=== PATIENT | male | born 1970 | race Two or more races ===

== ENCOUNTER 2021-07-21 19:50 | Inpatient (IN) | payer BC ==
[~2021-07-21] VITALS: Ht 177.8 cm; Wt 102.0 kg
--- NOTE | 2021-07-21 20:04 | NUR ---
aquiles from [place], pt experiencing covid sx and tested positive today. per EMS, pt also dx with bilat PNA. pt denies current CP/SOB. pt a&o, resps even and unlabored, vss, nadn. CHARLEEN Cruz at bedside for eval.
[2021-07-21] MEDS ORDERED: DEXAMETHASONE 4 MG/ML, 1ML IVPush ONE (20:30)
[2021-07-21 20:38] LABS: BASOPHILS % (AUTO) 0 % (0-1); EOSINOPHILS % (AUTO) 0 % (1-7); LYMPHOCYTES % (AUTO) 20 % (22-44); MEAN CORPUSCULAR HEMOGLOBIN 30.6 pg (27.5-34.5); MEAN CORPUSCULAR HGB CONC 33.9 g/dL (33.2-36.2); MEAN PLATELET VOLUME 8.4 fL (7.4-10.4); MONOCYTES % (AUTO) 10 % (2-9); NEUTROPHILS % (AUTO) 70 % (42-75); PLATELET COUNT 164 x10^3/uL (130-400); RED BLOOD COUNT 5.02 x10^6/uL (4.38-5.82); RED CELL DISTRIBUTION WIDTH 13.6 % (9.4-14.8)
[2021-07-21 20:50] LABS: ALANINE AMINOTRANSFERASE 45 U/L (12-78); ALBUMIN 2.8 g/dL (3.4-5.0); ANION GAP 13 mmol/L (5-15); CALCIUM 8.1 mg/dL (8.5-10.1); CHLORIDE 99 mmol/L (98-107); CREATININE 2.15 mg/dL (0.7-1.3); D-DIMER (DIC) 0.73 ug/mlFEU (0.00-0.52); PROTIME 10.7 Seconds (9.6-11.5)
[2021-07-21 20:57] LABS: ALKALINE PHOSPHATASE 76 U/L (45-117); BILIRUBIN,TOTAL 0.5 mg/dL (0.2-1.0); TOTAL PROTEIN 6.7 g/dL (6.4-8.2)
[2021-07-21] MEDS ORDERED: DEXAMETHASONE 4 MG/ML, 1ML ONE (21:00)
[2021-07-21] MEDS ORDERED: OXYcodone IR 5MG TABLET PO PRN (21:30)
[2021-07-21] MEDS: INSULIN LISPRO 100 UNITS/ML, PEN SQ-INSULIN SCH (21:30)
[2021-07-21] MEDS ORDERED: ONDANSETRON 2MG/ML, 2ML IVPush PRN (21:30)
[2021-07-21] MEDS ORDERED: LABETALOL 5MG/ML, 20ML IVPush PRN (21:30)
[2021-07-21] MEDS ORDERED: POLYETHYLENE GLYCOL 17 GM PACKET PO PRN (21:30)
[2021-07-21] MEDS ORDERED: GLUCAGON 1 MG IM PRN (21:30)
[2021-07-21] MEDS ORDERED: MELATONIN 5 MG TABLET PO PRN (21:30)
[2021-07-21] MEDS ORDERED: DEXTROSE 4 GM TAB.CHEW PO PRN (21:30)
[2021-07-21] MEDS ORDERED: DEXTROSE 50%, 50ML SYRINGE IVPush PRN (21:30)
[2021-07-21] MEDS ORDERED: PHARMACY MAY ADJ FOR RENAL FX MC PRN (21:30)
--- NOTE | 2021-07-21 23:09 | NUR ---
report called to Jolly PULLIAM in [phone]
[2021-07-21] MEDS: ASCORBIC ACID 500 MG TABLET PO SCH (23:53)
[2021-07-21] MEDS: FAMOTIDINE 20 MG TABLET PO SCH (23:53)
[2021-07-21] MEDS: BENZONATATE 100 MG CAPSULE PO SCH (23:53)
[2021-07-21] MEDS: ACETAMINOPHEN 500 MG TABLET PO SCH (23:53)
[2021-07-21] MEDS: SODIUM CHLORIDE FLUSH 10ML SYR IVF SCH (23:53)
[2021-07-22 00:01] VITALS: BP_SYST 157; BP_SYST 159; BP_DIAS 102; BP_DIAS 87
[2021-07-22 00:10] VITALS: BP 142/77
[2021-07-22] MEDS ORDERED: VALS320T15 PO (00:17)
[2021-07-22] MEDS: ACETAMINOPHEN 500 MG TABLET PO SCH ×4 (04:00→15:36)
[2021-07-22 06:35] LABS: BASOPHILS % (AUTO) 0 % (0-1); EOSINOPHILS % (AUTO) 0 % (1-7); LYMPHOCYTES % (AUTO) 25 % (22-44); MEAN CORPUSCULAR HEMOGLOBIN 30.4 pg (27.5-34.5); MEAN PLATELET VOLUME 8.2 fL (7.4-10.4); MONOCYTES % (AUTO) 8 % (2-9); NEUTROPHILS % (AUTO) 67 % (42-75); PLATELET COUNT 168 x10^3/uL (130-400); RED BLOOD COUNT 5.18 x10^6/uL (4.38-5.82); RED CELL DISTRIBUTION WIDTH 13.7 % (9.4-14.8)
[2021-07-22] MEDS: INSULIN LISPRO 100 UNITS/ML, PEN SQ-INSULIN SCH ×3 (07:00→15:36)
[2021-07-22 07:43] LABS: ANION GAP 8 mmol/L (5-15); CALCIUM 8.6 mg/dL (8.5-10.1); CHLORIDE 104 mmol/L (98-107)
[2021-07-22 07:44] LABS: CREATININE 2.01 mg/dL (0.7-1.3)
[2021-07-22 08:00] VITALS: BP 145/82
[2021-07-22] MEDS: BENZONATATE 100 MG CAPSULE PO SCH ×2 (08:04→15:36)
[2021-07-22] MEDS: ASCORBIC ACID 500 MG TABLET PO SCH (08:04)
[2021-07-22] MEDS: FAMOTIDINE 20 MG TABLET PO SCH (08:04)
[2021-07-22] MEDS: SODIUM CHLORIDE FLUSH 10ML SYR IVF SCH (08:05)
[2021-07-22] MEDS ORDERED: ZINC SULFATE 220 MG CAPSULE PO SCH (09:00)
[2021-07-22] MEDS ORDERED: DEXAMETHASONE 4 MG/ML, 1ML IVPush SCH (09:00)
[2021-07-22 11:11] VITALS: BP 148/80
[2021-07-22 15:38] VITALS: BP 137/81
[2021-07-22] MEDS ORDERED: DEXA6TAB6 PO (16:48)
[2021-07-23] MEDS ORDERED: FAMOTIDINE 20 MG TABLET PO SCH (09:00)
== END 2021-07-22 18:05 | disposition home or self-care (01) | DRG 177 ==
LOC: ED 21:00 → EDIP 22:16 → 3N 23:11
PROVIDERS: ADMIT Internal Medicine; ATTEND Family Medicine
DX: U07.1 COVID-19 (principal); J12.82 Pneumonia due to coronavirus disease 2019; J96.01 Acute respiratory failure with hypoxia; D65 Disseminated intravascular coagulation [defibrination syndrome]; N17.9 Acute kidney failure, unspecified; E87.1 Hypo-osmolality and hyponatremia; E66.01 Morbid (severe) obesity due to excess calories; I10 Essential (primary) hypertension; E10.65 Type 1 diabetes mellitus with hyperglycemia; Z68.31 Body mass index [BMI] 31.0-31.9, adult
CPT/HCPCS: 36415; 71045; 80048; 80053; 82728; 82962; 83605; 83615; 84145; 85025; 85049; 85379; 85384; 85610; 85730; 86140; 87040; 93005; 96374; 96375; G0378; J1100; J2405

== ENCOUNTER 2021-07-24 12:00 | Inpatient (IN) | payer BC, OTHER ==
[~2021-07-24] VITALS: Ht 177.8 cm; Wt 97.6 kg
[~2021-07-24 12:00] MED LIST: DEXA6TAB6 PO; VALS320T15 PO
--- NOTE | 2021-07-24 12:07 | NUR ---
EKG DONE IN TRIAGE.
[2021-07-24] MEDS ORDERED: SODIUM CHLORIDE FLUSH 10ML SYR IVF ONE (12:30)
--- NOTE | 2021-07-24 12:30 | NUR ---
PT C/O INCREASING SOB AND WEAKNESS. PT COVID + A FEW DAYS AGO AND WAS ADMITTED TO [facility] AT [place] AND RELEASED WEDNESDAY. PT ALSO HAS NAUSEA, NO VOMITING AND CP (3/10) ACROSS THE ENTIRE CHEST AT THIS TIME.
--- NOTE | 2021-07-24 12:30 | NUR ---
DR NGUYEN BEDSIDE
[2021-07-24] MEDS ORDERED: SODIUM CHLORIDE 0.9% 1,000ML IVBOLUS ONE (13:00)
--- NOTE | 2021-07-24 13:05 | NUR ---
REPORT FROM HERACLIO DOS SANTOS FOR TRANSFER OF PATIENT CARE.
[2021-07-24 13:16] LABS: BASOPHILS % (AUTO) 0 % (0-1); EOSINOPHILS % (AUTO) 0 % (1-7); LYMPHOCYTES % (AUTO) 6 % (22-44); MEAN CORPUSCULAR HEMOGLOBIN 30.3 pg (27.5-34.5); MEAN CORPUSCULAR HGB CONC 33.8 g/dL (33.2-36.2); MEAN PLATELET VOLUME 8.3 fL (7.4-10.4); MONOCYTES % (AUTO) 7 % (2-9); NEUTROPHILS % (AUTO) 87 % (42-75); PLATELET COUNT 243 x10^3/uL (130-400); RED BLOOD COUNT 5.13 x10^6/uL (4.38-5.82); RED CELL DISTRIBUTION WIDTH 13.7 % (9.4-14.8)
[2021-07-24 13:23] LABS: ALBUMIN 2.7 g/dL (3.4-5.0); ANION GAP 8 mmol/L (5-15); CALCIUM 8.8 mg/dL (8.5-10.1); CHLORIDE 101 mmol/L (98-107)
[2021-07-24 13:24] LABS: CREATININE 2.15 mg/dL (0.7-1.3)
--- NOTE | 2021-07-24 13:52 | NUR ---
PATIENT RESTING IN [facility], NS BOLUS HUNG. PATIENT'S O2 ON RA 87%-88%. PLACED ON 3 LPM NC, O2 UP TO 93%-96%, OTHER VSS, CALL LIGHT WITHIN REACH, NO FURTHER NEEDS AT THIS TIME.
[2021-07-24] MEDS ORDERED: SODIUM CHLORIDE FLUSH 10ML SYR IVF PRN (14:30)
[2021-07-24] MEDS ORDERED: DEXAMETHASONE 4 MG/ML, 1ML ONE (14:43)
[2021-07-24] MEDS ORDERED: AZITHROMYCIN 250 MG TABLET ONE (14:44)
--- NOTE | 2021-07-24 14:46 | NUR ---
DR. SAUL AT BEDSIDE FOR ADMISSION EVALUATION.
[2021-07-24] MEDS: CEFTRIAXONE 2 GM in DEXTROSE 5% 50 ML IVPB SCH (14:54)
[2021-07-24] MEDS: DEXAMETHASONE 4 MG/ML, 1ML IVPush SCH (14:58)
--- NOTE | 2021-07-24 14:58 | NUR ---
SPOKE WITH DR. SAUL, PATRICERON TO BE STARTED NOW, ORDER IS FOR 0900 TOMORROW.
[2021-07-24] MEDS: AZITHROMYCIN 500 MG TABLET PO SCH (15:02)
[2021-07-24 15:04] LABS: ALBUMIN 2.7 g/dL (3.4-5.0); BILIRUBIN, DIRECT 0.2 mg/dL (0.1-0.2)
[2021-07-24 15:11] LABS: BILIRUBIN,INDIRECT 0.3 mg/dL (0.0-2.0); BILIRUBIN,TOTAL 0.5 mg/dL (0.2-1.0); C-REACTIVE PROTEIN, QUANT 3.2 mg/dL (0.02-0.49); TOTAL PROTEIN 6.6 g/dL (6.4-8.2)
--- NOTE | 2021-07-24 15:22 | NUR ---
ATTEMPTED TO CALL REPORT.
[2021-07-24] MEDS ORDERED: TRAZODONE 50MG TABLET PO PRN (15:30)
[2021-07-24] MEDS ORDERED: ACETAMINOPHEN 325 MG TABLET PO PRN (15:30)
--- NOTE | 2021-07-24 15:30 | NUR ---
REPORT TO HERACLIO SCHROEDER FOR TRANSFER OF PATIENT CARE.
[2021-07-24 15:45] LABS: ACETONE, SERUM Small (20mg/dL) (Negative)
[2021-07-24] MEDS ORDERED: REMDESIVIR 100 MG in SODIUM CHLORIDE 0.9% 250 ML IVPB ONE (16:00)
[2021-07-24] MEDS: INSULIN LISPRO 100 UNITS/ML, PEN SQ-INSULIN SCH ×3 (16:00→21:00)
--- NOTE | 2021-07-24 16:02 | NUR ---
PATIENT TRANSFERRED IN STABLE CONDITION VIA GURNEY WITH PHOTOGRAPHIC PRINTER. ALL PATIENT BELONGINGS TAKEN TO FLOOR WIHT PATIENT.
[2021-07-24] MEDS: ONDANSETRON 2MG/ML, 2ML IVPush PRN (18:12)
[2021-07-24] MEDS: GUAIFENESIN/COD200MG-20MG/10ML LIQUID PO PRN (18:12)
[2021-07-24] MEDS: ASCORBIC ACID 500 MG TABLET PO SCH (18:12)
[2021-07-24] MEDS: ENOXAPARIN 40 MG/0.4 ML SQ SCH (18:13)
[2021-07-24 18:35] VITALS: BP 145/84
[2021-07-24 18:37] VITALS: BP 145/84
[2021-07-24 19:42] VITALS: BP 144/87
[2021-07-24] MEDS: INSULIN GLARGINE 100 UNITS/ML, PEN SQ-INSULIN SCH (22:02)
[2021-07-25 00:53] VITALS: BP 144/88
[2021-07-25] MEDS: GUAIFENESIN/COD200MG-20MG/10ML LIQUID PO PRN ×4 (01:26→19:57)
[2021-07-25 03:44] LABS: MICROSCOPIC INDICATED
[2021-07-25 05:29] LABS: BASOPHILS % (AUTO) 0 % (0-1); EOSINOPHILS % (AUTO) 0 % (1-7); LYMPHOCYTES % (AUTO) 9 % (22-44); MEAN CORPUSCULAR HEMOGLOBIN 30.5 pg (27.5-34.5); MEAN CORPUSCULAR HGB CONC 34.2 g/dL (33.2-36.2); MEAN PLATELET VOLUME 8.5 fL (7.4-10.4); MONOCYTES % (AUTO) 9 % (2-9); NEUTROPHILS % (AUTO) 82 % (42-75); PLATELET COUNT 261 x10^3/uL (130-400); RED BLOOD COUNT 4.88 x10^6/uL (4.38-5.82); RED CELL DISTRIBUTION WIDTH 13.7 % (9.4-14.8)
[2021-07-25 05:33] LABS: ANION GAP 8 mmol/L (5-15); CALCIUM 9.1 mg/dL (8.5-10.1); CHLORIDE 106 mmol/L (98-107)
[2021-07-25 05:38] LABS: CREATININE 1.88 mg/dL (0.7-1.3)
[2021-07-25] MEDS: INSULIN LISPRO 100 UNITS/ML, PEN SQ-INSULIN SCH ×7 (07:00→20:11)
[2021-07-25] MEDS ORDERED: FUROSEMIDE 40 MG/4 ML IV SCH ×2 (09:00→21:00)
[2021-07-25] MEDS: CHOLECALCIFEROL 1,000 UNIT TABLET PO SCH (09:00)
[2021-07-25] MEDS ORDERED: VALSARTAN 80 MG TABLET PO SCH ×2 (09:00)
[2021-07-25] MEDS: INSULIN GLARGINE 100 UNITS/ML, PEN SQ-INSULIN SCH (11:23)
[2021-07-25] MEDS: THIAMINE 100MG TABLET PO SCH (11:31)
[2021-07-25] MEDS: ZINC SULFATE 220 MG CAPSULE PO SCH (11:31)
[2021-07-25] MEDS: ASCORBIC ACID 500 MG TABLET PO SCH ×2 (11:32→17:34)
[2021-07-25 11:48] VITALS: BP 124/76
[2021-07-25] MEDS: ONDANSETRON 2MG/ML, 2ML IVPush PRN ×2 (12:05→17:36)
[2021-07-25 14:00] VITALS: BP 120/75
[2021-07-25] MEDS: CEFTRIAXONE 2 GM in DEXTROSE 5% 50 ML IVPB SCH (15:33)
[2021-07-25] MEDS ORDERED: REMDESIVIR 50 MG in SODIUM CHLORIDE 0.9% 250 ML IVPB SCH (16:00)
[2021-07-25] MEDS: REMDESIVIR 100 MG in SODIUM CHLORIDE 0.9% 250 ML IVPB SCH (17:34)
[2021-07-25] MEDS: ENOXAPARIN 40 MG/0.4 ML SQ SCH (17:35)
[2021-07-25 19:46] VITALS: BP 120/79
[2021-07-25] MEDS ORDERED: INSULIN GLARGINE 100 UNITS/ML, PEN SQ-INSULIN SCH (21:00)
[2021-07-26 00:49] VITALS: BP 103/71
[2021-07-26] MEDS: GUAIFENESIN/COD200MG-20MG/10ML LIQUID PO PRN ×2 (02:15→21:40)
[2021-07-26 05:43] LABS: ALANINE AMINOTRANSFERASE 44 U/L (12-78); ALBUMIN 2.3 g/dL (3.4-5.0); ANION GAP 10 mmol/L (5-15); CHLORIDE 104 mmol/L (98-107); CREATININE 2.25 mg/dL (0.7-1.3)
[2021-07-26 05:46] LABS: ALKALINE PHOSPHATASE 65 U/L (45-117); BILIRUBIN,TOTAL 0.5 mg/dL (0.2-1.0); TOTAL PROTEIN 6.8 g/dL (6.4-8.2)
[2021-07-26 06:35] VITALS: BP 108/76
[2021-07-26] MEDS: INSULIN LISPRO 100 UNITS/ML, PEN SQ-INSULIN SCH ×7 (08:32→21:40)
[2021-07-26] MEDS: FUROSEMIDE 40 MG/4 ML IV SCH (08:39)
[2021-07-26] MEDS: DEXAMETHASONE 4 MG/ML, 1ML IVPush SCH (08:39)
[2021-07-26] MEDS ORDERED: VALSARTAN 80 MG TABLET PO SCH (09:00)
[2021-07-26] MEDS: INSULIN GLARGINE 100 UNITS/ML, PEN SQ-INSULIN SCH ×2 (11:26→21:39)
[2021-07-26] MEDS: ONDANSETRON 2MG/ML, 2ML IVPush SCH ×2 (11:28→16:44)
[2021-07-26] MEDS: MORPHINE SULFATE 4 MG/ML, 1ML IVPush PRN ×2 (11:31→21:40)
[2021-07-26] MEDS: POTASSIUM CHLORIDE 20 MEQ TAB.ER.PRT PO SCH (11:37)
[2021-07-26] MEDS: THIAMINE 100MG TABLET PO SCH (11:38)
[2021-07-26] MEDS: ZINC SULFATE 220 MG CAPSULE PO SCH (11:38)
[2021-07-26] MEDS: CHOLECALCIFEROL 1,000 UNIT TABLET PO SCH (11:38)
[2021-07-26] MEDS: AZITHROMYCIN 500 MG TABLET PO SCH (11:38)
[2021-07-26] MEDS: ASCORBATE SODIUM IVPB SCH ×2 (11:42→21:40)
[2021-07-26] MEDS: SODIUM CHLORIDE 0.9% IVPB SCH ×2 (11:42→21:40)
[2021-07-26 13:13] VITALS: BP 107/63
[2021-07-26] MEDS: CEFTRIAXONE 2 GM in DEXTROSE 5% 50 ML IVPB SCH (16:37)
[2021-07-26] MEDS: REMDESIVIR 100 MG in SODIUM CHLORIDE 0.9% 250 ML IVPB SCH (17:48)
[2021-07-26] MEDS: ENOXAPARIN 60 MG/0.6 ML SQ SCH (17:48)
[2021-07-26 21:30] VITALS: BP 94/63
[2021-07-27 03:08] VITALS: BP 109/72
[2021-07-27] MEDS: GUAIFENESIN/COD200MG-20MG/10ML LIQUID PO PRN (05:35)
[2021-07-27] MEDS: MORPHINE SULFATE 4 MG/ML, 1ML IVPush PRN ×2 (05:36→18:28)
[2021-07-27 06:26] LABS: MEAN CORPUSCULAR HEMOGLOBIN 30.2 pg (27.5-34.5); MEAN CORPUSCULAR HGB CONC 33.2 g/dL (33.2-36.2); MEAN PLATELET VOLUME 8.5 fL (7.4-10.4); PLATELET COUNT 381 x10^3/uL (130-400); RED CELL DISTRIBUTION WIDTH 13.9 % (9.4-14.8)
[2021-07-27 06:32] LABS: CALCIUM 9.1 mg/dL (8.5-10.1); CHLORIDE 107 mmol/L (98-107)
[2021-07-27 06:38] LABS: ALANINE AMINOTRANSFERASE 35 U/L (12-78); ALBUMIN 2.3 g/dL (3.4-5.0); ALKALINE PHOSPHATASE 65 U/L (45-117); ANION GAP 8 mmol/L (5-15); BILIRUBIN,TOTAL 0.5 mg/dL (0.2-1.0); CREATININE 2.34 mg/dL (0.7-1.3); TOTAL PROTEIN 6.7 g/dL (6.4-8.2)
[2021-07-27 06:55] LABS: BAND#(MANUAL) 0.15 x10^3/uL; BANDS%(MANUAL) 1 % (0-7); LYMPH#(MANUAL) 1.19 x10^3/uL (1-3.4); LYMPHS% (MANUAL) 8 % (22-44); MONOS#(MANUAL) 1.04 x10^3/uL (0.3-2.7); MONOS% (MANUAL) 7 % (2-9); REACTIVE LYMPHS # (MANUAL) 0.45 x10^3/uL (0-0); REACTIVE LYMPHS % (MANUAL) 3 % (0-0); SEG#(MANUAL) 12.07 x10^3/uL (1.8-6.8); SEGS% (MANUAL) 81 % (42-75)
[2021-07-27 06:56] LABS: <PLATELET ESTIMATE> INCREASED; <PLT MORPHOLOGY> NORMAL PLT MORPH; <RBC MORPHOLOGY> NORMAL
[2021-07-27] MEDS: INSULIN LISPRO 100 UNITS/ML, PEN SQ-INSULIN SCH ×5 (07:00→20:36)
[2021-07-27] MEDS: FUROSEMIDE 40 MG/4 ML IV SCH (08:45)
[2021-07-27] MEDS: ONDANSETRON 2MG/ML, 2ML IVPush SCH ×3 (08:46→16:17)
[2021-07-27] MEDS: CHOLECALCIFEROL 1,000 UNIT TABLET PO SCH (08:46)
[2021-07-27] MEDS: THIAMINE 100MG TABLET PO SCH (08:46)
[2021-07-27] MEDS: ZINC SULFATE 220 MG CAPSULE PO SCH (08:46)
[2021-07-27] MEDS: DEXAMETHASONE 4 MG/ML, 1ML IVPush SCH (08:47)
[2021-07-27] MEDS: AZITHROMYCIN 500 MG TABLET PO SCH (08:47)
[2021-07-27] MEDS: POTASSIUM CHLORIDE 20 MEQ TAB.ER.PRT PO SCH (08:47)
[2021-07-27] MEDS: INSULIN GLARGINE 100 UNITS/ML, PEN SQ-INSULIN SCH ×2 (08:48→20:36)
[2021-07-27] MEDS: SODIUM CHLORIDE 0.9% IVPB SCH ×2 (08:52→20:35)
[2021-07-27] MEDS: ASCORBATE SODIUM IVPB SCH ×2 (08:52→20:35)
[2021-07-27 14:00] VITALS: BP 146/77
[2021-07-27] MEDS: CEFTRIAXONE 2 GM in DEXTROSE 5% 50 ML IVPB SCH (15:41)
[2021-07-27] MEDS: ENOXAPARIN 60 MG/0.6 ML SQ SCH (16:17)
[2021-07-27] MEDS: REMDESIVIR 100 MG in SODIUM CHLORIDE 0.9% 250 ML IVPB SCH (18:21)
[2021-07-27 20:57] VITALS: BP 137/84
[2021-07-28 00:54] VITALS: BP 125/64
[2021-07-28] MEDS: MORPHINE SULFATE 4 MG/ML, 1ML IVPush PRN ×2 (03:24→08:52)
[2021-07-28 05:53] LABS: MEAN CORPUSCULAR HEMOGLOBIN 30.4 pg (27.5-34.5); MEAN CORPUSCULAR HGB CONC 33.7 g/dL (33.2-36.2); MEAN PLATELET VOLUME 8.7 fL (7.4-10.4); PLATELET COUNT 363 x10^3/uL (130-400); RED BLOOD COUNT 4.74 x10^6/uL (4.38-5.82); RED CELL DISTRIBUTION WIDTH 13.9 % (9.4-14.8)
[2021-07-28 06:05] LABS: ALBUMIN 2.2 g/dL (3.4-5.0); ANION GAP 5 mmol/L (5-15); CALCIUM 8.7 mg/dL (8.5-10.1); CHLORIDE 110 mmol/L (98-107)
[2021-07-28 06:08] LABS: ALANINE AMINOTRANSFERASE 31 U/L (12-78); ALKALINE PHOSPHATASE 62 U/L (45-117); BILIRUBIN,TOTAL 0.5 mg/dL (0.2-1.0); CREATININE 2.13 mg/dL (0.7-1.3); TOTAL PROTEIN 6.2 g/dL (6.4-8.2)
[2021-07-28 06:41] LABS: <RBC MORPHOLOGY> NORMAL; BAND#(MANUAL) 0.43 x10^3/uL; BANDS%(MANUAL) 3 % (0-7); LYMPH#(MANUAL) 2.29 x10^3/uL (1-3.4); LYMPHS% (MANUAL) 16 % (22-44); MONOS#(MANUAL) 1.43 x10^3/uL (0.3-2.7); MONOS% (MANUAL) 10 % (2-9); SEG#(MANUAL) 10.15 x10^3/uL (1.8-6.8); SEGS% (MANUAL) 71 % (42-75)
[2021-07-28 06:42] LABS: <PLATELET ESTIMATE> ADEQUATE; <PLT MORPHOLOGY> NORMAL PLT MORPH
[2021-07-28] MEDS: DEXAMETHASONE 4 MG/ML, 1ML IVPush SCH (08:06)
[2021-07-28] MEDS: ZINC SULFATE 220 MG CAPSULE PO SCH (08:06)
[2021-07-28] MEDS: CHOLECALCIFEROL 1,000 UNIT TABLET PO SCH (08:06)
[2021-07-28] MEDS: THIAMINE 100MG TABLET PO SCH (08:06)
[2021-07-28] MEDS: ONDANSETRON 2MG/ML, 2ML IVPush SCH ×3 (08:06→16:58)
[2021-07-28] MEDS: POTASSIUM CHLORIDE 20 MEQ TAB.ER.PRT PO SCH ×2 (08:06→20:39)
[2021-07-28] MEDS: AZITHROMYCIN 500 MG TABLET PO SCH (08:06)
[2021-07-28] MEDS: FUROSEMIDE 40 MG/4 ML IV SCH ×2 (08:07→15:17)
[2021-07-28 08:13] VITALS: BP 99/63
[2021-07-28] MEDS: INSULIN LISPRO 100 UNITS/ML, PEN SQ-INSULIN SCH ×4 (08:50→20:39)
[2021-07-28] MEDS: INSULIN GLARGINE 100 UNITS/ML, PEN SQ-INSULIN SCH ×2 (08:51→20:40)
[2021-07-28] MEDS: SODIUM CHLORIDE 0.9% IVPB SCH ×2 (09:55→21:09)
[2021-07-28] MEDS: ASCORBATE SODIUM IVPB SCH ×2 (09:55→21:09)
[2021-07-28] MEDS: LACTULOSE 20 GM/30 ML UDC PO SCH ×2 (13:56→20:40)
[2021-07-28] MEDS: CEFTRIAXONE 2 GM in DEXTROSE 5% 50 ML IVPB SCH (15:17)
[2021-07-28 15:19] VITALS: BP 167/97
[2021-07-28] MEDS: REMDESIVIR 100 MG in SODIUM CHLORIDE 0.9% 250 ML IVPB SCH (18:37)
[2021-07-28 19:39] VITALS: BP 120/78
[2021-07-28] MEDS: ENOXAPARIN 60 MG/0.6 ML SQ SCH (20:39)
[2021-07-28] MEDS: TRAZODONE 50MG TABLET PO SCH (20:39)
[2021-07-29 00:11] VITALS: BP 107/68
[2021-07-29] MEDS: MORPHINE SULFATE 4 MG/ML, 1ML IVPush PRN (05:53)
[2021-07-29] MEDS: ONDANSETRON 2MG/ML, 2ML IVPush SCH ×4 (07:00→22:45)
[2021-07-29] MEDS: INSULIN LISPRO 100 UNITS/ML, PEN SQ-INSULIN SCH ×4 (07:00→20:57)
[2021-07-29] MEDS: THIAMINE 100MG TABLET PO SCH (07:28)
[2021-07-29] MEDS: ENOXAPARIN 60 MG/0.6 ML SQ SCH ×2 (07:28→20:56)
[2021-07-29] MEDS: POTASSIUM CHLORIDE 20 MEQ TAB.ER.PRT PO SCH ×2 (07:28→20:55)
[2021-07-29] MEDS: AZITHROMYCIN 500 MG TABLET PO SCH (07:28)
[2021-07-29] MEDS: CHOLECALCIFEROL 1,000 UNIT TABLET PO SCH (07:28)
[2021-07-29] MEDS: ZINC SULFATE 220 MG CAPSULE PO SCH (07:28)
[2021-07-29] MEDS: LACTULOSE 20 GM/30 ML UDC PO SCH ×2 (07:28→20:58)
[2021-07-29] MEDS: DEXAMETHASONE 4 MG/ML, 1ML IVPush SCH (07:29)
[2021-07-29 07:36] VITALS: BP 92/60
[2021-07-29] MEDS: INSULIN GLARGINE 100 UNITS/ML, PEN SQ-INSULIN SCH ×2 (09:18→20:58)
[2021-07-29] MEDS: ASCORBIC ACID 500 MG TABLET PO SCH ×2 (09:18→20:55)
[2021-07-29] MEDS: FUROSEMIDE 40 MG/4 ML IV SCH ×2 (09:18→17:19)
[2021-07-29] MEDS: OXYcodone IR 5MG TABLET PO PRN (10:20)
[2021-07-29 10:24] LABS: CHLORIDE 107 mmol/L (98-107)
[2021-07-29 10:28] LABS: ANION GAP 7 mmol/L (5-15); CALCIUM 9.2 mg/dL (8.5-10.1); CREATININE 2.34 mg/dL (0.7-1.3)
[2021-07-29 12:13] VITALS: BP 116/85
[2021-07-29] MEDS: CEFTRIAXONE 2 GM in DEXTROSE 5% 50 ML IVPB SCH (17:20)
[2021-07-29 21:09] VITALS: BP 116/85
[2021-07-29] MEDS: TRAZODONE 50MG TABLET PO SCH (22:45)
[2021-07-30] VITALS: BP 89/61
[2021-07-30] MEDS: INSULIN LISPRO 100 UNITS/ML, PEN SQ-INSULIN SCH ×4 (07:00→19:59)
[2021-07-30] MEDS: ZINC SULFATE 220 MG CAPSULE PO SCH (07:56)
[2021-07-30] MEDS: DEXAMETHASONE 4 MG/ML, 1ML IVPush SCH (07:56)
[2021-07-30] MEDS: CHOLECALCIFEROL 1,000 UNIT TABLET PO SCH (07:57)
[2021-07-30] MEDS: ASCORBIC ACID 500 MG TABLET PO SCH ×2 (07:57→20:36)
[2021-07-30] MEDS: POTASSIUM CHLORIDE 20 MEQ TAB.ER.PRT PO SCH ×2 (07:57→20:36)
[2021-07-30] MEDS: THIAMINE 100MG TABLET PO SCH (07:58)
[2021-07-30] MEDS: LACTULOSE 20 GM/30 ML UDC PO SCH ×2 (07:58→19:59)
[2021-07-30] MEDS: AZITHROMYCIN 500 MG TABLET PO SCH (07:58)
[2021-07-30] MEDS: ONDANSETRON 2MG/ML, 2ML IVPush SCH ×2 (07:59→16:24)
[2021-07-30 08:22] VITALS: BP 88/53
[2021-07-30] MEDS: FUROSEMIDE 40 MG/4 ML IV SCH ×2 (09:55→16:24)
[2021-07-30] MEDS: ENOXAPARIN 60 MG/0.6 ML SQ SCH ×2 (09:56→20:36)
[2021-07-30] MEDS: MORPHINE SULFATE 4 MG/ML, 1ML IVPush PRN (09:56)
[2021-07-30] MEDS: INSULIN GLARGINE 100 UNITS/ML, PEN SQ-INSULIN SCH ×2 (09:59→20:38)
[2021-07-30 13:37] VITALS: BP 142/72
[2021-07-30] MEDS: CEFTRIAXONE 2 GM in DEXTROSE 5% 50 ML IVPB SCH (15:00)
[2021-07-30] MEDS: TRAZODONE 50MG TABLET PO SCH (20:36)
[2021-07-30 20:57] VITALS: BP 147/72
[2021-07-31 01:26] VITALS: BP 118/67
[2021-07-31 08:00] VITALS: BP 92/51
[2021-07-31] MEDS: LACTULOSE 20 GM/30 ML UDC PO SCH ×2 (10:23→20:47)
[2021-07-31] MEDS: ENOXAPARIN 60 MG/0.6 ML SQ SCH ×2 (10:23→20:40)
[2021-07-31] MEDS: INSULIN GLARGINE 100 UNITS/ML, PEN SQ-INSULIN SCH ×2 (10:24→20:43)
[2021-07-31] MEDS: POTASSIUM CHLORIDE 20 MEQ TAB.ER.PRT PO SCH ×2 (10:25→20:40)
[2021-07-31] MEDS: CHOLECALCIFEROL 1,000 UNIT TABLET PO SCH (10:25)
[2021-07-31] MEDS: ASCORBIC ACID 500 MG TABLET PO SCH ×2 (10:25→20:40)
[2021-07-31] MEDS: DEXAMETHASONE 4 MG/ML, 1ML IVPush SCH (10:25)
[2021-07-31] MEDS: ONDANSETRON 2MG/ML, 2ML IVPush SCH ×3 (10:25→16:49)
[2021-07-31] MEDS: THIAMINE 100MG TABLET PO SCH (10:26)
[2021-07-31] MEDS: ZINC SULFATE 220 MG CAPSULE PO SCH (10:26)
[2021-07-31] MEDS: AZITHROMYCIN 500 MG TABLET PO SCH (10:26)
[2021-07-31] MEDS: INSULIN LISPRO 100 UNITS/ML, PEN SQ-INSULIN SCH ×4 (10:33→20:45)
[2021-07-31] MEDS: FUROSEMIDE 40 MG/4 ML IV SCH ×2 (10:33→16:49)
[2021-07-31] MEDS: OXYcodone IR 5MG TABLET PO PRN (10:50)
[2021-07-31 14:30] VITALS: BP 92/63
[2021-07-31] MEDS: CEFTRIAXONE 2 GM in DEXTROSE 5% 50 ML IVPB SCH (15:05)
[2021-07-31] MEDS ORDERED: BISACODYL 10 MG SUPP PR PRN (17:30)
[2021-07-31] MEDS ORDERED: DOCUSATE 100 MG CAPSULE PO PRN (17:30)
[2021-07-31] MEDS ORDERED: POLYETHYLENE GLYCOL 17 GM PACKET PO PRN (17:30)
[2021-07-31 19:45] VITALS: BP 114/74
[2021-07-31] MEDS: TRAZODONE 50MG TABLET PO SCH (20:40)
[2021-08-01 01:37] VITALS: BP 96/64
[2021-08-01] MEDS: INSULIN LISPRO 100 UNITS/ML, PEN SQ-INSULIN SCH ×4 (08:32→20:38)
[2021-08-01] MEDS: INSULIN GLARGINE 100 UNITS/ML, PEN SQ-INSULIN SCH ×2 (08:32→20:38)
[2021-08-01] MEDS: ENOXAPARIN 60 MG/0.6 ML SQ SCH ×2 (08:33→20:26)
[2021-08-01] MEDS: LACTULOSE 20 GM/30 ML UDC PO SCH ×3 (08:33→20:28)
[2021-08-01] MEDS: ONDANSETRON 2MG/ML, 2ML IVPush SCH ×3 (08:34→15:56)
[2021-08-01] MEDS: OXYcodone IR 5MG TABLET PO PRN (08:34)
[2021-08-01] MEDS: FUROSEMIDE 40 MG/4 ML IV SCH ×2 (08:34→15:56)
[2021-08-01] MEDS: GUAIFENESIN/COD200MG-20MG/10ML LIQUID PO PRN (08:34)
[2021-08-01] MEDS: ASCORBIC ACID 500 MG TABLET PO SCH ×2 (08:35→20:26)
[2021-08-01] MEDS: DEXAMETHASONE 4 MG/ML, 1ML IVPush SCH (08:35)
[2021-08-01] MEDS: AZITHROMYCIN 500 MG TABLET PO SCH (08:35)
[2021-08-01] MEDS: THIAMINE 100MG TABLET PO SCH (08:35)
[2021-08-01] MEDS: POTASSIUM CHLORIDE 20 MEQ TAB.ER.PRT PO SCH ×2 (08:36→20:26)
[2021-08-01] MEDS: ZINC SULFATE 220 MG CAPSULE PO SCH (08:36)
[2021-08-01] MEDS: CHOLECALCIFEROL 1,000 UNIT TABLET PO SCH (08:36)
[2021-08-01 08:44] VITALS: BP 122/79
[2021-08-01 14:39] VITALS: BP 99/64
[2021-08-01] MEDS ORDERED: FUROSEMIDE 40 MG/4 ML IV SCH (15:00)
[2021-08-01] MEDS: CEFTRIAXONE 2 GM in DEXTROSE 5% 50 ML IVPB SCH (15:55)
[2021-08-01] MEDS: TRAZODONE 50MG TABLET PO SCH (20:26)
[2021-08-01 20:30] VITALS: BP 101/65
[2021-08-02 01:08] VITALS: BP 90/58
[2021-08-02] MEDS: GUAIFENESIN/COD200MG-20MG/10ML LIQUID PO PRN (07:43)
[2021-08-02] MEDS: LACTULOSE 20 GM/30 ML UDC PO SCH ×2 (07:43→21:00)
[2021-08-02] MEDS: POTASSIUM CHLORIDE 20 MEQ TAB.ER.PRT PO SCH ×2 (07:46→20:17)
[2021-08-02] MEDS: ASCORBIC ACID 500 MG TABLET PO SCH ×2 (07:46→20:17)
[2021-08-02] MEDS: CHOLECALCIFEROL 1,000 UNIT TABLET PO SCH (07:46)
[2021-08-02] MEDS: AZITHROMYCIN 500 MG TABLET PO SCH (07:46)
[2021-08-02] MEDS: ENOXAPARIN 60 MG/0.6 ML SQ SCH ×2 (07:47→20:17)
[2021-08-02] MEDS: ZINC SULFATE 220 MG CAPSULE PO SCH (07:47)
[2021-08-02] MEDS: THIAMINE 100MG TABLET PO SCH (07:47)
[2021-08-02] MEDS: INSULIN LISPRO 100 UNITS/ML, PEN SQ-INSULIN SCH ×4 (07:48→21:00)
[2021-08-02] MEDS: DEXAMETHASONE 4 MG/ML, 1ML IVPush SCH (07:48)
[2021-08-02] MEDS: ONDANSETRON 2MG/ML, 2ML IVPush SCH ×3 (07:48→15:42)
[2021-08-02] MEDS: INSULIN GLARGINE 100 UNITS/ML, PEN SQ-INSULIN SCH ×2 (07:48→20:19)
[2021-08-02] MEDS: FUROSEMIDE 40 MG/4 ML IV SCH ×2 (07:51→15:42)
[2021-08-02] MEDS: OXYcodone IR 5MG TABLET PO PRN (07:55)
[2021-08-02] MEDS ORDERED: FUROSEMIDE 40 MG/4 ML IV SCH (09:00)
[2021-08-02 20:08] VITALS: BP 121/72
[2021-08-02] MEDS: TRAZODONE 50MG TABLET PO SCH (20:17)
[2021-08-02 23:52] VITALS: BP 118/76
[2021-08-03 01:42] VITALS: BP 124/78
[2021-08-03 05:50] LABS: CREATININE 2.15 mg/dL (0.7-1.3)
[2021-08-03] MEDS: INSULIN LISPRO 100 UNITS/ML, PEN SQ-INSULIN SCH ×4 (07:00→20:53)
[2021-08-03] MEDS: ONDANSETRON 2MG/ML, 2ML IVPush SCH ×3 (07:00→15:59)
[2021-08-03] MEDS ORDERED: CHOL10003 PO (07:35)
[2021-08-03] MEDS ORDERED: Guaifenesin/Cod200mg-20MG/10ML PO (07:35)
[2021-08-03] MEDS ORDERED: ASCO500T9 PO (07:35)
[2021-08-03] MEDS: DEXAMETHASONE 4 MG/ML, 1ML IVPush SCH (07:57)
[2021-08-03] MEDS: FUROSEMIDE 40 MG/4 ML IV SCH ×2 (07:57→15:59)
[2021-08-03] MEDS: POTASSIUM CHLORIDE 20 MEQ TAB.ER.PRT PO SCH ×2 (07:58→20:54)
[2021-08-03] MEDS: LACTULOSE 20 GM/30 ML UDC PO SCH ×2 (07:58→20:54)
[2021-08-03] MEDS: THIAMINE 100MG TABLET PO SCH (07:58)
[2021-08-03] MEDS: ZINC SULFATE 220 MG CAPSULE PO SCH (07:58)
[2021-08-03] MEDS: ENOXAPARIN 60 MG/0.6 ML SQ SCH ×2 (07:58→20:54)
[2021-08-03] MEDS: ASCORBIC ACID 500 MG TABLET PO SCH ×2 (07:59→20:54)
[2021-08-03] MEDS: CHOLECALCIFEROL 1,000 UNIT TABLET PO SCH (07:59)
[2021-08-03] MEDS: INSULIN GLARGINE 100 UNITS/ML, PEN SQ-INSULIN SCH ×2 (08:00→21:08)
[2021-08-03 08:36] VITALS: BP 128/79
[2021-08-03 12:07] VITALS: BP 121/78
[2021-08-03] MEDS ORDERED: ONDANSETRON 0.8 MG/ML ORAL SOL PO PRN (18:30)
[2021-08-03] MEDS ORDERED: ONDANSETRON 4 MG TABLET PO PRN (18:30)
[2021-08-03 19:24] VITALS: BP 109/65
[2021-08-03] MEDS: TRAZODONE 50MG TABLET PO SCH (20:54)
[2021-08-04 00:01] VITALS: BP 122/71
[2021-08-04] MEDS: ONDANSETRON 2MG/ML, 2ML IVPush SCH ×3 (06:52→16:41)
[2021-08-04 07:03] VITALS: BP 117/75
[2021-08-04] MEDS: ASCORBIC ACID 500 MG TABLET PO SCH ×2 (08:18→20:06)
[2021-08-04] MEDS: POTASSIUM CHLORIDE 20 MEQ TAB.ER.PRT PO SCH ×2 (08:18→20:06)
[2021-08-04] MEDS: THIAMINE 100MG TABLET PO SCH (08:18)
[2021-08-04] MEDS: DEXAMETHASONE 4 MG/ML, 1ML IVPush SCH (08:18)
[2021-08-04] MEDS: FUROSEMIDE 40 MG/4 ML IV SCH ×2 (08:18→16:41)
[2021-08-04] MEDS: LACTULOSE 20 GM/30 ML UDC PO SCH ×2 (08:19→20:06)
[2021-08-04] MEDS: ENOXAPARIN 60 MG/0.6 ML SQ SCH ×2 (08:19→20:06)
[2021-08-04] MEDS: ZINC SULFATE 220 MG CAPSULE PO SCH (08:19)
[2021-08-04] MEDS: CHOLECALCIFEROL 1,000 UNIT TABLET PO SCH (08:19)
[2021-08-04] MEDS: INSULIN LISPRO 100 UNITS/ML, PEN SQ-INSULIN SCH ×4 (08:23→20:19)
[2021-08-04] MEDS: INSULIN GLARGINE 100 UNITS/ML, PEN SQ-INSULIN SCH ×2 (08:34→20:19)
[2021-08-04 13:41] VITALS: BP 110/72
[2021-08-04] MEDS: TRAZODONE 50MG TABLET PO SCH (20:06)
[2021-08-04 20:15] VITALS: BP 118/74
[2021-08-05 01:43] VITALS: BP 112/75
[2021-08-05 08:04] VITALS: BP 122/75
[2021-08-05] MEDS: INSULIN LISPRO 100 UNITS/ML, PEN SQ-INSULIN SCH ×2 (09:32→11:00)
[2021-08-05] MEDS: ONDANSETRON 2MG/ML, 2ML IVPush SCH ×2 (09:32→09:35)
[2021-08-05] MEDS: ZINC SULFATE 220 MG CAPSULE PO SCH (09:33)
[2021-08-05] MEDS: CHOLECALCIFEROL 1,000 UNIT TABLET PO SCH (09:33)
[2021-08-05] MEDS: FUROSEMIDE 40 MG/4 ML IV SCH (09:33)
[2021-08-05] MEDS: POTASSIUM CHLORIDE 20 MEQ TAB.ER.PRT PO SCH (09:33)
[2021-08-05] MEDS: ASCORBIC ACID 500 MG TABLET PO SCH (09:33)
[2021-08-05] MEDS: THIAMINE 100MG TABLET PO SCH (09:33)
[2021-08-05] MEDS: LACTULOSE 20 GM/30 ML UDC PO SCH (09:34)
[2021-08-05] MEDS: DEXAMETHASONE 4 MG/ML, 1ML IVPush SCH (09:34)
[2021-08-05] MEDS: ENOXAPARIN 60 MG/0.6 ML SQ SCH (09:34)
[2021-08-05] MEDS: INSULIN GLARGINE 100 UNITS/ML, PEN SQ-INSULIN SCH (09:35)
[2021-08-05 12:37] VITALS: BP 118/77
== END 2021-08-05 14:16 | disposition home or self-care (01) | DRG 871 ==
LOC: ED 14:10 → EDIP 14:19 → ED 14:36 → 3N 15:58
PROVIDERS: ADMIT Hospitalist; ATTEND Family Medicine
PROC: XW033E5 Introduction of Remdesivir Anti-infective into Peripheral Vein, Percutaneous Approach, New Technology Group 5 (ICD-10-PCS; principal; 2021-07-24)
DX: A41.89 Other specified sepsis (principal); U07.1 COVID-19; J12.82 Pneumonia due to coronavirus disease 2019; J96.01 Acute respiratory failure with hypoxia; N17.9 Acute kidney failure, unspecified; Z96.41 Presence of insulin pump (external) (internal); G47.00 Insomnia, unspecified; E10.65 Type 1 diabetes mellitus with hyperglycemia; D72.810 Lymphocytopenia; T38.0X5A Adverse effect of glucocorticoids and synthetic analogues, initial encounter; E10.22 Type 1 diabetes mellitus with diabetic chronic kidney disease; N18.9 Chronic kidney disease, unspecified; I12.9 Hypertensive chronic kidney disease with stage 1 through stage 4 chronic kidney disease, or unspecified chronic kidney disease; Y92.89 Other specified places as the place of occurrence of the external cause; Z79.4 Long term (current) use of insulin
CPT/HCPCS: 36415; 36600; 71045; 80048; 80053; 80076; 81001; 82010; 82040; 82565; 82803; 82947; 82962; 83036; 83605; 83615; 83735; 84100; 84145; 85025; 85379; 86140; 87040; 87205; 93005; 96361; 96374; 99285; G0378; J0696; J1100; J1650; J1940; J2405; Q0162; J1815; J2270; J7030; J7050